=== PATIENT | female | born 1990 | race Caucasian/White ===

== ENCOUNTER 2018-05-11 16:03 | Inpatient (IN) ==
[2018-05-11] MEDS ORDERED: RINGER'S SOLUTION,LACTATED 1,000 ML IV ONE (17:33)
[2018-05-11] MEDS ORDERED: ONDANSETRON HCL/PF 2 MG/ML VIAL IV PRN ×2 (17:33→22:09)
[2018-05-11] MEDS ORDERED: DEXTROSE 5%-LACTATED RINGERS 1,000 ML IV PRN (17:33)
[2018-05-11] MEDS ORDERED: OXYTOCIN/DEXTROSE 5%-WATER 30 UNITS/500 ML BAG IV ONE (17:33)
[2018-05-11] MEDS ORDERED: BUPIVACAINE HCL/0.9 % NACL/PF 250 ML EP PRN (22:09)
[2018-05-11] MEDS ORDERED: NALOXONE HCL 1 MG/1 ML SYRG IV PRN (22:09)
[2018-05-11] MEDS ORDERED: BUPIVACAINE HCL/PF 30 ML VIAL EP SCH (22:15)
--- NOTE | 2018-05-11 22:43 | ANES ---
Anesthesia Pre Procedure Eval Vitals/Labs: Last Vital Signs Temp 37.2 C 05/11/18 22:11 Pulse 115 H 05/11/18 22:11 Resp 22 H 05/11/18 22:11 BP 139/80 05/11/18 22:11 Pulse Ox 98 05/11/18 22:11 HOME MEDICATIONS Ferrous Sulfate [Iron] 325 mg PO DAILY 02/21/18 [Last Taken 05/10/18 21:00] Lansoprazole [Prevacid] 15 mg PO DAILY 02/21/18 [Last Taken 05/11/18 08:00] Aiu737/FA/Omega3/Dha/Fish Oil [ Gummies] 1 ea PO DAILY 02/21/18 [Last Taken 05/10/18 21:00] Allergies/Adverse Reactions: Allergies Allergy/AdvReac Type Severity Reaction Status Date / Time codeine AdvReac Severe Vomiting Verified 04/27/18 08:47 - Planned Procedure Planned Procedure: Labor epidural Medication List Reviewed:: Yes Allergies Verified: Yes Medical History (Last Reviewed 05/03/18 @ 10:59 by Farhad Kam) Anemia (Acute) Anxiety Gastritis Acne Seasonal allergies Condyloma acuminata Dermatitis Inguinal hernia Mononucleosis HPV (human papilloma virus) infection Surgical History (Last Reviewed 05/03/18 @ 10:59 by Farhad Kam) H/O breast augmentation History of inguinal hernia repair Family History (Last Reviewed 05/03/18 @ 10:59 by Farhad Kam) Father Skin cancer Grandfather Testicular cancer Grandfather Hypertension History of cardiac aneurysm Grandmother CHF (congestive heart failure) Accident Mother Migraines Sister Hypertension Pre-eclampsia Son Allergy - Cardiovascular Tolerates Activity: Good Heart Sounds: S1 & S2, Regular - Anesthesia Assessment and Plan ASA Class: PS, II Anesthesia Type Plan: Epidural
--- NOTE | 2018-05-11 23:00 | ANES ---
Anesthesia Procedure Note Procedure Note: ANESTHESIA PROCEDURE NOTE Date of Procedure: 05/11/2018. Time of procedure: 2244. Performed by: Can Carlisle CRNA Rn Immunology: None. Preprocedure diagnosis: Active labor. Post procedure diagnosis: Same. Procedure: Insertion of labor epidural. Indications: The patient is a 28 -year-old female in active labor requesting labor epidural for pain management. Findings: See below. Details of the procedure: The patient was placed in a sitting position. DuraPrep as well as Betadine swabs X3 was applied to the patient's back. Patient was then draped in a sterile fashion. Lidocaine 1% was infiltrated to the skin and subcutaneous tissues at the level of the L3-4 interspace. The epidural space was identified using a 18-gauge Tuohy needle with loss-of- resistance technique. Epidural catheter was inserted to a depth of 10 centimeters at skin. Negative test dose was elicited using 3 mL of 1.5% preservative-free lidocaine plus epinephrine 1 200,000. The epidural catheter was then taped and secured in place. A loading dose of 8 mL of 0.25% preservative-free bupivacaine was administered to the epidural catheter after negative aspiration for blood and CSF. EBL: Minimal. Fluids: N/A. Specimen: N/A. Post procedure condition: The patient tolerated the procedure well. No complications were noted. Thank you for this consultation. Can Carlisle CRNA
--- NOTE | 2018-05-11 23:00 | ANES ---
Post Anesthesia Assessment - Vital Signs Vitals: Last Vital Signs Temp 35.9 C L 05/11/18 22:59 Pulse 118 H 05/11/18 22:59 Resp 22 H 05/11/18 22:59 BP 149/69 H 05/11/18 22:59 Pulse Ox 97 05/11/18 22:59 Airway Patency: Normal - Mental Status Level Of Consciousness: Awake - N/V Assessment Nausea/Vomiting Presence: None Dehydration:: No
[2018-05-12] MEDS ORDERED: SENNOSIDES 8.6 MG TABLET PO PRN (00:11)
[2018-05-12] MEDS ORDERED: OXYTOCIN/DEXTROSE 5%-WATER 30 UNITS/500 ML BAG IV ONE (00:11)
[2018-05-12] MEDS ORDERED: ACETAMINOPHEN 500 MG TABLET PO PRN (00:11)
[2018-05-12] MEDS ORDERED: HYDROCORTISONE 30 APPL TUBE TP PRN (00:11)
[2018-05-12] MEDS ORDERED: BENZOCAINE/MENTHOL 81 SPRAY CAN TP PRN (00:11)
[2018-05-12] MEDS ORDERED: GLYCERIN/WITCH HAZEL LEAF 40 APPL BOX TP PRN (00:11)
[2018-05-12] MEDS ORDERED: BISACODYL 10 MG SUPP.RECT RC PRN (00:11)
--- NOTE | 2018-05-12 00:31 | HP ---
Chief Complaint - Chief Complaint Date of Service: 05/11/18 Time of Service: 23:10 Chief Complaint: LOF, contractions History of Present Illness: 28 yo at 39 5/7 wks presents to L&D complaining of LOF and contractions since around 1500. This complicated by mild anemia and anxiety. RH positive Rubella immune GBS negative Medical History (Last Reviewed 05/12/18 @ 00:16 by Diogo Ortiz DO) Anemia (Acute) Anxiety Gastritis Acne Seasonal allergies Condyloma acuminata Dermatitis Inguinal hernia Mononucleosis HPV (human papilloma virus) infection Surgical History: Surgical History (Last Reviewed 05/12/18 @ 00:16 by Diogo Ortiz DO) H/O breast augmentation History of inguinal hernia repair Family History: Family History (Last Reviewed 05/12/18 @ 00:16 by Diogo Ortiz DO) Father Skin cancer Grandfather Testicular cancer Grandfather Hypertension History of cardiac aneurysm Grandmother CHF (congestive heart failure) Accident Mother Migraines Sister Hypertension Pre-eclampsia Son Allergy Social History: Preferred Language Liberian Review Of Systems (GEN) - Review of Systems EENTM: Present: No Symptoms Reported Respiratory: Present: No Symptoms Reported Cardiac: Present: No Symptoms Reported Abdominal: Present: No Symptoms Reported Genitourinary: Present: Other - contractions Musculoskeletal: Present: No Symptoms Reported Neurological: Present: No Symptoms Reported Skin: Present: No Symptoms Reported Endocrine: Present: No Symptoms Reported Allergies/Adverse Reactions: Allergies Allergy/AdvReac Type Severity Reaction Status Date / Time codeine AdvReac Severe Vomiting Verified 04/27/18 08:47 Home Medications: HOME MEDICATIONS Ferrous Sulfate [Iron] 325 mg PO DAILY 02/21/18 [Last Taken 05/10/18 21:00] Lansoprazole [Prevacid] 15 mg PO DAILY 02/21/18 [Last Taken 05/11/18 08:00] Zgx178/FA/Omega3/Dha/Fish Oil [ Gummies] 1 ea PO DAILY 02/21/18 [Last Taken 05/10/18 21:00] Exam - Exam Vital Signs: Vital Signs - Last Taken Temp 35.9 C L 05/11/18 22:59 Pulse 118 H 05/11/18 22:59 Resp 22 H 05/11/18 22:59 BP 149/69 H 05/11/18 22:59 Pulse Ox 97 08/31/18 22:59 Constitutional: Present: Alert, Oriented x3, Cooperative, Mild distress ENT Exam: Present: hearing grossly normal Respiratory: Present: lungs clear, no respiratory distress Cardiovascular/Chest: Present: tachycardia, edema Abdomen: Present: soft, nontender, other - gravid /Rectal: Present: Other - cervix 3-4/75/-1, clear gross ROM Extremity: Present: non-tender, no calf tenderness, pedal edema Skin Exam: Present: normal color, warm/dry, no cyanosis Neurologic: Present: alert, normal mood/affect, oriented x 3 Eye contact: Present: cooperative, good eye contact, normal speech Thoughts: Present: normal thought pattern Assessment/Plan - Assessment/Plan (1) Premature rupture of membranes (PROM), onset of labor within 24 hours, antepartum Assessment: Admit for routine management of labor. Minimize vaginal exams. Epidural PRN. Problem: Acute
--- NOTE | 2018-05-12 00:33 | OR ---
Operative Report - Dictated Report Narrative: Spontaneous vaginal delivery of viable female at 2343 on 05/11/2018 with Apgars 9 and 9, weighing 3600 g in LISA position, complicated by right hand presenting at chin Cord clamping delayed approximately 1 minute Placenta delivered complete, intact, with three vessel cord Estimated blood loss: less than 50 ml Anesthesia: epidural Lacerations: None History for MU Definition: * The number of deliveries resulting in a live the patient experienced prior to current hospitalization * The previous delivery of live twins or any live multiple gestation is considered one live event. *If primagravida or nulliparous is documented select zero for the number of previous live births. Live Events: 1
[2018-05-12] MEDS ORDERED: BUPIVACAINE HCL/PF 30 ML VIAL EP ONE (02:24)
[2018-05-12] MEDS: IBUPROFEN 800 MG TABLET PO PRN ×2 (07:26→17:50)
--- NOTE | 2018-05-12 09:32 | PN ---
Subjective - Date and Time Seen Date: 05/12/18 Time: : Objective - Vitals Vitals: Last Vital Signs Temp 36.7 C 05/12/18 09:00 Pulse 100 05/12/18 09:00 Resp 18 05/12/18 09:00 BP 134/85 05/12/18 09:00 Pulse Ox 98 05/12/18 09:00 Patient denies complaints. Lochia wnl Abdomen - soft, nontender Uterus - firm, at umbilicus, No calf tenderness Impression: day #1 - s/p spontaneous vaginal delivery. Plan: Continue routine care Cauti Physician Documentation - Urinary Catheter Management Urethral ([place]) Date of Insertion: 05/11/18 Time of Insertion: 22:55 Date of Removal: 05/11/18 Time of Removal: 23:15 Assessment/Plan - Problems/Diagnosis (1) Premature rupture of membranes (PROM), onset of labor within 24 hours, antepartum Problem: Acute
[2018-05-12] MEDS: PRENATAL VITS96/IRON FUM/FOLIC 1 TAB TABLET PO SCH (16:04)
[2018-05-12] MEDS: DOCUSATE SODIUM 100 MG CAPSULE PO SCH (16:04)
[2018-05-12] MEDS: FERROUS SULFATE 325 MG TABLET PO SCH (16:04)
[2018-05-12 20:00] VITALS: BP 118/76
[2018-05-13] MEDS: IBUPROFEN 800 MG TABLET PO PRN (00:46)
[2018-05-13] MEDS: DOCUSATE SODIUM 100 MG CAPSULE PO SCH ×2 (02:55→09:44)
[2018-05-13] MEDS: FERROUS SULFATE 325 MG TABLET PO SCH (09:44)
[2018-05-13] MEDS: PRENATAL VITS96/IRON FUM/FOLIC 1 TAB TABLET PO SCH (09:44)
--- NOTE | 2018-05-13 09:57 | PN ---
Subjective - Date and Time Seen Date: 05/13/18 Time: 09:57 Objective - Vitals Vitals: Last Vital Signs Temp 36.6 C 05/12/18 19:56 Pulse 92 05/12/18 13:42 Resp 16 05/12/18 19:56 BP 118/76 05/12/18 19:56 Pulse Ox 97 05/12/18 13:42 Patient denies complaints. Breast-feeding well Lochia wnl Abdomen - soft, nontender Uterus - firm, at umbilicus - 2 No calf tenderness Impression: day #2 - s/p spontaneous vaginal delivery. Plan: Routine discharge instructions Cauti Physician Documentation - Urinary Catheter Management Urethral ([place]) Date of Insertion: 05/11/18 Time of Insertion: 22:55 Date of Removal: 05/11/18 Time of Removal: 23:15 Assessment/Plan - Problems/Diagnosis (1) Premature rupture of membranes (PROM), onset of labor within 24 hours, antepartum Problem: Acute
== END 2018-05-13 12:00 | disposition home or self-care (01) | DRG 775 ==
LOC: OB 16:03
PROVIDERS: ADMIT Obstetrics & Gynecology; ATTEND Obstetrics & Gynecology
CPT/HCPCS: 59025; J2405